=== PATIENT | male | born 1955 | race Caucasian/White ===

== ENCOUNTER → 2018-04-20 | Outpatient (CLI) | END | disposition home or self-care (01) ==

== ENCOUNTER 2018-05-07 16:02 | Inpatient (IN) | END 2018-05-08 16:35 | disposition home or self-care (01) | DRG 815 ==

== ENCOUNTER 2018-12-31 10:48 | Emergency (ER) | payer BC, MEDICARE ==
[~2018-12-31] VITALS: Ht 170.2 cm; Wt 89.3 kg
[~2018-12-31 10:48] MED LIST: ASC500 PO; FER325 PO; TRAM50TA2 PO
[2018-12-31 10:51] VITALS: Ht 170.2 cm; Wt 89.3 kg
[2018-12-31] MEDS ORDERED: SOD CHLORIDE 0.9% 1,000 ML IV STA (11:25)
[2018-12-31] MEDS ORDERED: DICYCLOMINE 20 MG INJ IM ONE (11:30)
--- NOTE | 2018-12-31 12:49 | ERD ---
ER Documentation Chief Complaint Chief Complaint c/o headache , abd pain , dizziness x 2 days HPI Translation services were utilized during this patient's encounter Language: Occitan Source: In person 63-year-old male history of atrial fibrillation/atrial flutter not currently taking medications who presents to the emergency room with multiple complaints. The patient describes generalized malaise, headache, mild generalized abdominal bloating and abdominal discomfort. He describes some dizziness for several days. He denies any chest pain or shortness of breath, no fevers or chills. He denies exertional symptoms. He is having some slight diarrhea. No recent travel, sick contacts, antibiotics. She is not following up with his primary care physician. He does not take anticoagulants currently. ROS All systems reviewed and are negative except as per history of present illness. Medications Home Meds Active Scripts Dicyclomine HCl (Dicyclomine HCl) 10 Mg Capsule, 10 MG PO TID PRN for ABDOMINAL CRAMPING, #20 CAP Prov:CORIN BURKS MD 12/31/18 Discontinued Scripts Ascorbic Acid (Vitamin C) 500 Mg Tab, 500 MG PO BID, #60 TAB Prov:RITCHIE UPTON 05/08/18 Ferrous Sulfate* (Ferrous Sulfate*) 325 Mg Tabec, 325 MG PO BID, #60 TAB Prov:RITCHIE UPTON 05/08/18 Tramadol HCl (Tramadol HCl) 50 Mg Tablet, 50 MG PO Q6H PRN for PAIN, #30 TAB Prov:RITCHIE UPTON 05/08/18 Allergies Allergies: Coded Allergies: No Known Allergy (Unverified , 12/31/18) PMhx/Soc History of Surgery: No Anesthesia Reaction: No Hx Neurological Disorder: No Hx Respiratory Disorders: No Hx Cardiac Disorders: Yes (AFIB/ AFLUTTER) Hx Psychiatric Problems: No Hx Miscellaneous Medical Probl: No Hx Alcohol Use: No Hx Substance Use: No Hx Tobacco Use: No Smoking Status: Never smoker FmHx Family History: diabetes Physical Exam Vitals Vital Signs Date Temp Pulse Resp B/P (MAP) Pulse Ox O2 O2 Flow FiO2 Time Delivery Rate 12/31/18 98.6 51 18 114/63 98 10:51 (80) Physical Exam General: Well developed, well nourished, no acute distress Head: Normocephalic, atraumatic. Eyes: Pupils equally reactive, EOM intact ENT: Moist mucous membranes Neck: Supple, no lymphadenopathy Respiratory: Lungs clear bilaterally, no distress Cardiovascular: RRR, no murmurs, rubs, or gallops Abdominal: Soft, slightly protuberant, nonspecific generalized abdominal tenderness worse to the right upper quadrant, no rebound or guarding, no peritonitis. : Deferred MSK: No edema, no unilateral swelling, 5/5 strength Neurologic: Alert and oriented, moving all extremities, normal speech, no focal weakness, no cerebellar signs Skin: No rash Psych: Normal mood Result Diagram: 12/31/18 1130 12/31/18 1130 Results 24 hrs Laboratory Tests Test 12/31/18 11:30 White Blood Count 6.0 10^3/ul Red Blood Count 5.17 10^6/ul Hemoglobin 15.6 g/dl Hematocrit 45.0 % Mean Corpuscular Volume 87.0 fl Mean Corpuscular Hemoglobin 30.2 pg Mean Corpuscular Hemoglobin Concent 34.7 g/dl Red Cell Distribution Width 13.6 % Platelet Count 76 10^3/UL Mean Platelet Volume 11.8 fl Immature Granulocytes % 0.300 % Neutrophils % 64.7 % Lymphocytes % 25.5 % Monocytes % 8.2 % Eosinophils % 1.0 % Basophils % 0.3 % Nucleated Red Blood Cells % 0.0 /100WBC Immature Granulocytes # 0.020 10^3/ul Neutrophils # 3.9 10^3/ul Lymphocytes # 1.5 10^3/ul Monocytes # 0.5 10^3/ul Eosinophils # 0.1 10^3/ul Basophils # 0.0 10^3/ul Nucleated Red Blood Cells # 0.0 10^3/ul Prothrombin Time 13.7 Sec Prothrombin Time Ratio 1.1 INR International Normalized Ratio 1.04 Activated Partial Thromboplast Time 30.6 Sec Sodium Level 143 mmol/L Potassium Level 4.1 mmol/L Chloride Level 107 mmol/L Carbon Dioxide Level 26 mmol/L Anion Gap 10 Blood Urea Nitrogen 19 mg/dl Creatinine 1.01 mg/dl Est Glomerular Filtrat Rate mL/min > 60 mL/min Glucose Level 168 mg/dl Calcium Level 9.3 mg/dl Total Bilirubin 1.2 mg/dl Direct Bilirubin 0.00 mg/dl Indirect Bilirubin 1.2 mg/dl Aspartate Amino Transf (AST/SGOT) 45 IU/L Alanine Aminotransferase (ALT/SGPT) 39 IU/L Alkaline Phosphatase 142 IU/L Troponin I 0.016 ng/ml Total Protein 8.0 g/dl Albumin 4.0 g/dl Globulin 4.00 g/dl Albumin/Globulin Ratio 1.00 Lipase 54 U/L Current Medications Medications Dose Sig/Nico Start Time Status Last (Trade) Ordered Route PRN Stop Time Admin Dose Reason Admin Sodium 1,000 ml @ Q1H STAT 12/31/18 DC 12/31/18 Chloride 1,000 mls/hr IV 11:25 12/31/18 12:32 12:24 Dicyclomine 10 mg ONCE ONCE 12/31/18 DC 12/31/18 HCl IM 11:30 12/31/18 12:32 (Bentyl) 11:31 Procedures/MDM EKG, MONITORS, & DIAGNOSTIC IMAGING: EKG EKG: I reviewed and interpreted a 12-lead EKG. Rhythm: Atrial flutter ST Changes: No contiguous ST segment elevations T waves: No contiguous T wave inversions Impression: Atrial flutter Gallbladder ultrasound: IMPRESSION: Heterogeneous and coarse echogenicity of the liver, consistent with chronic liver disease. No evidence of gallstones. CT abdomen and pelvis: IMPRESSION: 1. The liver remains normal in size but heterogeneous and nodular in contour compatible with cirrhotic change. No discrete mass is evident. 2. Persistent splenomegaly. The large areas of decreased enhancement seen at the inferior spleen on the previous study, compatible with either infarction or hematoma/laceration are not presently visualized with this noncontrast study. 3. There is no longer free intraperitoneal fluid and no free intraperitoneal a ir is evident. There is a tiny fat containing right inguinal hernia, unchanged. 4. There is again no evidence of urinary outflow obstruction or ureterolithiasis. The bladder wall remains mildly thickened and there is a grossly enlarged prostate impinging on the base of the bladder, unchanged. 5. There is again no evidence of bowel obstruction or inflammation. A normal vermiform appendix is evident. 6. The pancreas remains fatty infiltrated. 7. There is mild atherosclerotic vascular calcification including the coronary arteries. The pericardial effusion has decreased and is now trace. LAB INTERPRETATION: I reviewed the laboratory testing and it shows [no evidence of acute process] MEDICAL DECISION MAKING: The patient presents with a multitude of nonspecific complaints. This is possib ly secondary to viral process. The patient is describing abdominal bloating. Patient does have some slight right upper quadrant abdominal tenderness. 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 His pain is not out of proportion and I do not believe this is consistent with thromboembolic process. However the patient is not taking his medications for his atrial fibrillation/atrial flutter. He is rate controlled currently. Patient was strongly urged that he needs to follow-up with his primary care physician to have further conversations about anticoagulation and outpatient therapy for his cardiac disease process. The patient was noted to have ascites during prior work-up, consider underlying hepatic disease. No clinical signs of SBP. At this time I will obtain laboratory testing and CT imaging of the abdomen pelvis as well as ultrasound of the gallbladder. The patient will benefit from pain and symptom control medication. Outpatient follow-up and discharge is likely. ER COURSE: * The patient's diagnostic imaging is reassuring but possibly consistent with cirrhosis. Patient has no abdominal pain concerning for SBP. * Patient needs further outpatient management. He needs to see a primary care physician, [facility] operator [facility] clinic cma. The patient was given referral information. He was urged strongly that he needs to compliance with his medication regimen and return precautions were discussed and understood. * At this point no indication for hospitalization. CONSULTATION: [None] DISPOSITION PLAN: The patient does not have an identifiable emergent medical condition that warrants inpatient hospitalization at this time. The patient is deemed safe for discharge with outpatient follow-up. We discussed follow up with the patient's primary care doctor within 24 to 48 hours as needed. We also discussed return to the emergency room for worsening symptoms or worsening condition. Outpatient referral: Cardiology, hematology, primary care Discharge Medications: Bentyl Departure Diagnosis: Primary Impression: Abdominal bloating Additional Impressions: Cirrhosis Hepatic cirrhosis type: unspecified hepatic cirrhosis Ascites presence: unspecified Qualified Codes: K74.60 - Unspecified cirrhosis of liver Atrial flutter Atrial flutter type: unspecified Qualified Codes: I48.92 - Unspecified atrial flutter Noncompliance with medication regimen Condition: CORIN Todd MD Dec 31, 2018 12:49
[2018-12-31] MEDS ORDERED: DICY10CA40 PO (13:04)
[2018-12-31 13:30] VITALS: BP 117/61; PULSE 46; RESP 18
== END 2018-12-31 13:35 | disposition home or self-care (01) ==
LOC: E/R 10:48
DX: K74.60 Unspecified cirrhosis of liver (principal); I48.92 Unspecified atrial flutter; Z91.14 Patient's other noncompliance with medication regimen
CPT/HCPCS: 36415; 74176; 76705; 80053; 83690; 84484; 85025; 85610; 85730; 96372; 99285; J0500; J7030; 93005